=== PATIENT | female | born 1945 | race Caucasian/White ===

== ENCOUNTER 2016-11-20 09:20 | Day surgery (SDC) | payer MEDICARE, OTHER ==
[~2016-11-20] VITALS: Ht 160 cm; Wt 97.0 kg
[~2016-11-20 09:20] MED LIST: 0.9% Sodium Chloride 1,000 ML IV PRN; ASPI-973 PO; CALC600T12 PO; CHOL200047 PO; CYCL1DRO OP; MULT-1018 PO; OMEG1CAP56 PO; OMEP40CA36 PO; PRAV40TA PO; PROP60TA17 PO; SERT50TA PO; Sodium Chloride LOK Flush 10 mL Syringe IV PRN; UBID300C PO; fentaNYL-PF 50 mCg/mL 2 mL Inj IVPUSH PRN
[2016-11-20 09:57] VITALS: BP 128/67; PULSE 55; RESP 14; O2SAT 95
[2016-11-20 11:34] VITALS: BP 99/53; PULSE 54; RESP 16; O2SAT 96
[2016-11-20 11:44] VITALS: BP 87/55; PULSE 53; RESP 16; O2SAT 94
[2016-11-20 11:54] VITALS: BP 93/63; PULSE 67; RESP 16; O2SAT 95
--- NOTE | 2016-11-20 12:05 | ENDO ---
[address] [address] ENDOSCOPY PROCEDURE PATIENT: HERNAN FRANCOIS : 1945 MR#: [id number] ADMIT: 11/20/2016 JOB ID: [id number] DATE OF SERVICE: 11/20/2016 PROCEDURE: Colonoscopy. INDICATIONS: A 71-year-old female with increasing symptoms of constipation. She has a personal history of colon polyps and a family history of colon cancer. EQUIPMENT: [id number]. SEDATION: 1. Versed 5 mg. 2. Fentanyl 100 mcg. COMPLICATIONS: None identified. BOWEL PREPARATION: Fair, adequate exam. PROCEDURE INFORMATION: After the risks and benefits were explained, written and verbal informed consent was obtained. The patient was brought into the endoscopy suite and placed into the left lateral decubitus position. Sedation was achieved using the above-stated medications with the addition of oxygen via nasal cannula. A digital rectal examination was accomplished and revealed the presence of moderate internal and external nonbleeding, nonthrombosed hemorrhoids. The scope was introduced into the rectum and advanced under direct visualization to the cecum as identified by the appendiceal orifice and ileocecal valve. The scope was slowly withdrawn to carefully examine the mucosa for any defects or lesions. Multiple direct views were made through the dentate line for exclusion of pathology. The colon was decompressed. The scope removed from the patient who tolerated the procedure well. FINDINGS: No significant polyps or mass lesions throughout. The patient had a couple of linear superficial ulcerative features in the distal rectum. I initially unleashed biopsy forceps to take a bite but on further inspection, this appeared rather classic for a stercoral ulceration and would really fit with her diagnosis of chronic constipation. I therefore took some photographs and did not biopsy this location. ENDOSCOPIC DIAGNOSES: 1. Hemorrhoids. 2. Mild distal rectal stercoral ulceration. RECOMMENDATIONS: 1. Repeat colonoscopy in five years considering personal and family history. 2. The patient is encouraged to utilize a better bowel regimen with fiber and potentially daily MiraLAX. 3. Follow up in GI clinic in the next approximately six weeks to review overall response to therapy.
== END 2016-11-20 23:59 | disposition home or self-care (01) ==
LOC: END 09:20
PROVIDERS: ATTEND Internal Medicine Gastroenterology
DX: K59.00 Constipation, unspecified (principal); K64.8 Other hemorrhoids; K62.6 Ulcer of anus and rectum; Z86.010 Personal history of colon polyps; Z80.0 Family history of malignant neoplasm of digestive organs; G47.33 Obstructive sleep apnea (adult) (pediatric); E78.5 Hyperlipidemia, unspecified; F32.9 Major depressive disorder, single episode, unspecified; R00.2 Palpitations; N80.9 Endometriosis, unspecified; A60.00 Herpesviral infection of urogenital system, unspecified
CPT/HCPCS: 45378; G0500; J7030